=== PATIENT | female | born 1930 | race Caucasian/White ===

== ENCOUNTER 2016-05-15 13:16 | Emergency (ER) | payer MEDICARE, OTHER ==
[2016-05-15] MEDS ORDERED: Sodium Chloride 0.9% 10 ML Syringe FLUSH PRN (15:49)
[2016-05-15] MEDS ORDERED: Sodium Chloride 0.9% 1,000 ML IV SCH (16:00)
[2016-05-15 17:19] VITALS: BP 146/59
--- NOTE | 2016-05-15 17:40 | EDM.PDOC ---
ED HPI GENERAL MEDICAL PROBLEM - General Chief Complaint: General Stated Complaint: COUGH/ILL TODAY Time Seen by Provider: 05/15/16 15:40 Source of Information: Reports: Patient History Limitations: Reports: No limitations - History of Present Illness INITIAL COMMENTS - FREE TEXT/NARRATIVE: This lady said that she woke up on Friday or 3 days ago with a cough. She's been taking some Robitussin-DM cough medication. She slept a lot today. She denies any fever there is no chest pain no shortness of breath chest cough and a poor appetite. At about 11:30 today she got up suddenly and felt dizzy and started to fall. Her son caught her although she did bump her head against a table but that was very mild. He said she seemed stunned for about 30 seconds. EMS was called and they evaluated her and suggested she come to the ER but they did not transport her here. She feels fine now. - Related Data Allergies Allergy/AdvReac Type Severity Reaction Status Date / Time Sulfa (Sulfonamide Allergy Rash Verified 08/31/15 18:01 Antibiotics) Home Meds: Home Meds Aspirin [Ecotrin] 81 mg PO DAILY 08/31/15 [History] Atenolol 50 mg PO DAILY 08/31/15 [History] Betamethasone/Propylene Glyc [Diprolene 0.05%] 50 gm TP BID 08/31/15 [History] Calcium Carbonate/Vitamin D3 [Calcium 600 + Vit D 200] 1 each PO BID 08/31/15 [ History] EPINEPHrine [Epinephrine] 0.3 mg IM ASDIRECTED PRN 08/31/15 [History] Multivitamin [Multiple Vitamins] 1 tab PO DAILY 08/31/15 [History] Vitamin E 200 units PO DAILY 08/31/15 [History] atorvaSTATin [Lipitor] 10 mg PO ONETIME 08/31/15 [History] Latanoprost [Xalatan 0.005% Ophth Soln] 1 drop EYEBOTH BEDTIME 09/02/15 [History ] Hydrocodone/Acetaminophen [Hydrocodon-Acetaminophen 5-325] 1 each PO Q4H #30 tablet 09/03/15 [Rx] hydrALAZINE [Apresoline] 10 mg PO QID #120 tablet 09/03/15 [Rx] Losartan/Hydrochlorothiazide [Losartan-HCTZ 100-25 MG] 1 each PO DAILY 05/15/16 [History] amLODIPine Besylate [Amlodipine Besylate] 5 mg PO DAILY 05/15/16 [History] Past Medical History HEENT History: Reports: Glaucoma, Impaired vision, Macular degeneration Cardiovascular History: Reports: High cholesterol, Hypertension 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: Oncologic (Cancer) History: Reports: Cervix Dermatologic History: Reports: Other (see below) Other Dermatologic History: Numular dermatitis - Infectious Disease History Infectious Disease History: Reports: Chicken pox, Measles, Mumps - Past Surgical History HEENT Surgical History: Reports: Tonsillectomy, Other (see below) Other HEENT Surgeries/Procedures: Tear duct surgery Female Surgical History: Reports: Hysterectomy Social & Family History - Tobacco Use Smoking Status *Q: Never Smoker Second Hand Smoke Exposure: No - Caffeine Use Caffeine Use: Reports: Coffee, Tea - Recreational Drug Use Recreational Drug Use: No ED ROS GENERAL - Review of Systems Review Of Systems: See Below Constitutional: Reports: no symptoms HEENT: Reports: No symptoms Respiratory: Reports: Cough Cardiovascular: Reports: No symptoms Endocrine: Reports: no symptoms GI/Abdominal: Reports: No symptoms : Reports: no symptoms Musculoskeletal: Reports: no symptoms Skin: Reports: no symptoms Neurological: Reports: Dizziness (As per HPI) Psychiatric: Reports: No symptoms Hematologic/Lymphatic: Reports: no symptoms ED EXAM, GENERAL - Physical Exam Exam: See Below Exam Limited By: No limitations General Appearance: alert, WD/WN, no apparent distress Eye Exam: bilateral eye: normal inspection Ears: normal external exam Nose: normal inspection Throat/Mouth: Normal inspection Head: atraumatic (I don't notice any contusion or hematoma to the scalp) Neck: normal inspection, supple, full range of motion Respiratory/Chest: lungs clear Cardiovascular: regular rate, rhythm, no murmur GI/Abdominal: non tender Back Exam: normal inspection Extremities: normal inspection Neurological: alert, oriented Psychiatric: normal affect Skin Exam: Warm Course - Vital Signs Last Recorded V/S: Last Vital Signs Temp 37.1 C 05/15/16 16:11 Pulse 62 05/15/16 17:18 Resp 16 05/15/16 17:18 BP 146/59 H 05/15/16 17:18 Pulse Ox 96 05/15/16 17:18 - Orders/Labs/Meds Orders: Active Orders 24 hr Category Date Time Status Chest 2V [CR] Urgent Exams 05/15/16 15:49 Taken Saline Lock Insert [OM.PC] Urgent Oth 05/15/16 15:49 Ordered Labs: Laboratory Tests 05/15/16 05/15/16 Range/Units 16:00 16:00 WBC 5.9 (4.5-11.0) K/uL RBC 3.96 (3.30-5.50) M/uL Hgb 11.7 L (12.0-15.0) g/dL Hct 35.4 L (36.0-48.0) % MCV 89 (80-98) fL MCH 30 (27-31) pg MCHC 33 (32-36) % Plt Count 218 (150-400) K/uL Neut % (Auto) 59 (36-66) % Lymph % (Auto) 21 L (24-44) % [place] % (Auto) 20 H (2-6) % Eos % (Auto) 0 L (2-4) % Baso % (Auto) 0 (0-1) % Sodium 131 L (140-148) mmol/L Potassium 3.6 (3.6-5.2) mmol/L Chloride 94 L (100-108) mmol/L Carbon Dioxide 29 (21-32) mmol/L Anion Gap 11.6 (5.0-14.0) mmol/L BUN 21 H D (7-18) mg/dL Creatinine 1.4 H D (0.6-1.0) mg/dL Est Cr Clr Drug Dosing 27.95 mL/min Estimated GFR (MDRD) 36 L (>60) Glucose 115 H (74-106) mg/dL Calcium 9.1 (8.5-10.1) mg/dL Total Bilirubin 0.3 (0.2-1.0) mg/dL AST 35 (15-37) U/L ALT 27 (12-78) U/L Alkaline Phosphatase 44 L (46-116) U/L Total Protein 6.9 (6.4-8.2) g/dL Albumin 3.3 L (3.4-5.0) g/dL Globulin 3.6 H (2.3-3.5) g/dL Albumin/Globulin Ratio 0.9 L (1.2-2.2) Meds: Medications Discontinued Medications Generic Name Dose Route Start Last Admin Trade Name Freq PRN Reason Stop Dose Admin Sodium Chloride 1,000 mls @ 999 mls/hr 05/15/16 16:00 05/15/16 16:05 Normal Saline IV 999 mls/hr ASDIRECTED LISA Administration Sodium Chloride 10 ml 05/15/16 15:49 05/15/16 16:05 Saline Flush FLUSH 10 ml ASDIRECTED PRN Administration Keep Vein Open - Radiology Interpretation Free Text/Narrative:: Chest x-ray shows normal heart size normal lung markings - Re-Assessments/Exams Free Text/Narrative Re-Assessment/Exam: 05/15/16 17:56 The patient received 1 L of IV normal saline and said it made her feel much better. Labs were reviewed with the patient. By her history she's not tolerating the Robitussin-DM very well so she has a supply of hydrocodone at home so I suggest she take about 2-1/2 mg about every 4 hours and that should do well to control her cough. I suggest she avoid the guaifenesin also. I will put her on a Z-Chaitanya Departure - Departure Time of Disposition: 17:37 Disposition: Home, Self-Care 01 Condition: fair Clinical Impression: Bronchitis Instructions: Syncope, [id number] Referrals: Serge Truong MD [Primary Care Provider] - Forms: ED Department Discharge Additional Instructions: Take the azithromycin 250 mg 2 tablets today then one tablet daily until finished. Avoid the Robitussin-DM since it makes a lot of people dizzy and can actually make you cough more. Hydrocodone as a good cough suppressant and 2-1/2 mg every 4 hours is effective against cough. Most of the hydrocodone pain pills such as Lortab Vicodin or [place] or the 5/325 tablets to take one half tablet every 4 hours. Check what size you have since some tablets are 10 mg in which case you would just take one fourth of a tablet. Remember that hydrocodone can make you groggy - My Orders Last 24 Hours: My Active Orders 05/15/16 15:49 Chest 2V [CR] Urgent Saline Lock Insert [OM.PC] Urgent - Assessment/Plan Last 24 Hours: My Active Orders 05/15/16 15:49 Chest 2V [CR] Urgent Saline Lock Insert [OM.PC] Urgent
--- NOTE | 2016-05-16 09:56 | CR ---
Mild cardiomegaly. Tiny nodular density at the right apex. Recommend lordotic view follow-up is this may indicate a calcified granuloma but is indeterminate. Emphysematous change. No focal consolidati on.
== END 2016-05-15 17:52 | disposition home or self-care (01) ==
LOC: JP.ED 13:16
DX: J40 Bronchitis, not specified as acute or chronic (principal); E78.00 Pure hypercholesterolemia, unspecified; I10 Essential (primary) hypertension; Z88.2 Allergy status to sulfonamides; Z79.82 Long term (current) use of aspirin; Z79.899 Other long term (current) drug therapy; Z98.890 Other specified postprocedural states; Z90.710 Acquired absence of both cervix and uterus
CPT/HCPCS: 36415; 71020; 80053; 85025; 96360; 99284; J7040; J7050; 99283

== ENCOUNTER 2019-11-22 11:30 | Emergency (ER) | payer MEDICARE, OTHER ==
--- NOTE | 2019-11-22 12:03 | EDM.PDOC ---
ED HPI GENERAL MEDICAL PROBLEM - General Chief Complaint: ENT Problem Stated Complaint: MAYBE A STROKE Time Seen by Provider: 11/22/19 11:55 Source of Information: Reports: Patient, Family (son cares for patient at home) - History of Present Illness INITIAL COMMENTS - FREE TEXT/NARRATIVE: Gaby is a very active, pleasant and alert 89 year old female presents with son (whom cares for her at home) to ER with son for evaluation of left ear/facial pain. Gaby had a PE tube placed 1 week ago for serous otitis by ENT in [place]. son attempted to contacted ENT today for recommendations. Gaby has had left facial pain over the last 3 days which was significantly worse overnight. Son noticed facial droop this am and called the nurse line whom recommended Urgent ER evaluation. Son [place] and did not feel EMS would be as fast as driving to ER himself. Gaby describes slight decreased sensation in the left side of her face with intermittent severe sharp shooting pains, which brings her to tears. Gaby reports posterior ear discomfort. Gaby had not taken pain medication today due to no improvement of symptoms over the weekend. Gaby is on a ASA 81mg and medications for blood pressure and cholesterol. Gaby was prescribed ear drops which she completed over the weekend. Gaby denies fevers, chills,sweats or systemic infectious symptoms at this Time. Gaby denies fever, cough or URI symptoms concerning for COVID. Left Ear Pain Score (Numeric/FACES): 8 - Related Data Allergies Allergy/AdvReac Type Severity Reaction Status Date / Time Sulfa (Sulfonamide Allergy Rash Verified 08/31/15 18:01 Antibiotics) Home Meds: Home Meds Aspirin [Ecotrin EC] 81 mg PO DAILY 08/31/15 [History] Betamethasone/Propylene Glyc [Diprolene 0.05%] 50 gm TP BID 08/31/15 [History] Calcium Carbonate/Vitamin D3 [Calcium 600 + Vit D 200] 1 each PO BID 08/31/15 [History] EPINEPHrine [Epinephrine] 0.3 mg IM ASDIRECTED PRN 08/31/15 [History] Multivitamin [Multiple Vitamins] 1 tab PO DAILY 08/31/15 [History] Vitamin E 200 units PO DAILY 08/31/15 [History] atenoloL [Atenolol] 50 mg PO DAILY 08/31/15 [History] atorvaSTATin [Lipitor] 10 mg PO ONETIME 08/31/15 [History] Latanoprost [Xalatan 0.005% Ophth Soln] 1 drop EYEBOTH BEDTIME 09/02/15 [History] hydrALAZINE [Apresoline] 10 mg PO QID #120 tablet 09/03/15 [Rx] Losartan/Hydrochlorothiazide [Losartan-HCTZ 100-25 MG] 1 each PO DAILY 05/15/16 [History] amLODIPine Besylate [Amlodipine Besylate] 5 mg PO DAILY 05/15/16 [History] Ofloxacin [Floxin 0.3% Otic Soln] 1 drop EARBOTH BID 11/22/19 [History] valACYclovir HCl [Valacyclovir] 1,000 mg PO TID 10 Days #30 tablet 11/22/19 [Rx] Past Medical History HEENT History: Reports: Glaucoma, Impaired Vision, Macular Degeneration Cardiovascular History: Reports: High Cholesterol, Hypertension [employer]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: Oncologic (Cancer) History: Reports: Cervix Dermatologic History: Reports: Other (See Below) Other Dermatologic History: Numular dermatitis - Infectious Disease History Infectious Disease History: Reports: Chicken Pox, Measles, Mumps - Past Surgical History HEENT Surgical History: Reports: Tonsillectomy, Other (See Below) Female Surgical History: Reports: Hysterectomy Social & Family History - Tobacco Use Smoking Status *Q: Never Smoker - Caffeine Use Caffeine Use: Reports: Coffee, Tea - Recreational Drug Use Recreational Drug Use: No ED ROS ENT - Review of Systems Review Of Systems: Comprehensive ROS is negative, except as noted in HPI. ED EXAM, ENT - Physical Exam Exam: See Below Exam Limited By: No Limitations General Appearance: Alert, WD/WN, Moderate Distress (tearful due to severity of intermittent sharp pain) Eye Exam: Right Eye: Normal Inspection, Left Eye: Other (dropping lower eye lid ), Bilateral Eye: EOMI, PERRL Ears: Normal External Exam, Normal Canal, Hearing Grossly Normal (right (no hearing aide in left due to pain) Blue PE tube noted. ), Auricular Tenderness (with movement of pinna and tragus), Mastoid Tenderness (left with slight swelling), TM Perforation (PE tube left). No: Auricular Erythema, Auricular Ecchymosis, Canal Blood, Canal Material, Canal Swelling, TM Bulging, TM Erythema, TM Blood, TM Fluid, TM Vesicles Nose: Normal Inspection Mouth/Throat: Normal Inspection, Normal Lips (obvious left facial drop with forehead involvement (Gan's) ). No: Normal Oropharynx, Dental Pain, Hoarse Voice Head: Normocephalic Neck: Normal Inspection, Supple, Full Range of Motion Respiratory/Chest: No Respiratory Distress, Lungs Clear, Normal Breath Sounds Cardiovascular: Normal Peripheral Pulses, Regular Rate, Rhythm GI/Abdominal: Normal Bowel Sounds, Soft (Female) Exam: Deferred Rectal (Female) Exam: Deferred Neurological: Alert, Oriented, Normal Cognition, Sensory/Motor Deficit (Left facial sensation and left facial nerve droop) Skin: Warm, Dry, Intact, Normal Color, No Rash. No: Erythema Course - Vital Signs Last Recorded V/S: Last Vital Signs Temp 36.8 C 11/22/19 11:52 Pulse 63 11/22/19 14:49 Resp 18 11/22/19 14:49 BP 155/65 H 11/22/19 14:49 Pulse Ox 98 11/22/19 14:49 - Orders/Labs/Meds Orders: Active Orders 24 hr Category Date Time Status Cardiac Monitoring [RC] .As Directed Care 11/22/19 12:08 Active Peripheral IV Care [RC] . DIRECTED Care 11/22/19 12:09 Active Vital Signs [RC] PFP Care 11/22/19 12:08 Active Sodium Chloride 0.9% [Normal Saline] 1,000 ml Med 11/22/19 12:15 Active IV ASDIRECTED Sodium Chloride 0.9% [Saline Flush] Med 11/22/19 12:09 Active 10 ml FLUSH ASDIRECTED PRN Peripheral IV Insertion Adult [OM.PC] Urgent Oth 11/22/19 12:08 Ordered Medication Orders Sodium Chloride (Normal Saline) 1,000 mls @ 250 mls/hr IV ASDIRECTED LISA Last Admin: 11/22/19 12:48 Dose: 250 mls/hr Documented by: ROHINI Sodium Chloride (Saline Flush) 10 ml FLUSH ASDIRECTED PRN PRN Reason: Keep Vein Open Labs: Laboratory Tests 11/22/19 11/22/19 11/22/19 Range/Units 12:29 12:29 12:29 WBC 6.8 (4.5-11.0) K/uL RBC 4.07 (3.30-5.50) M/uL Hgb 12.1 (12.0-15.0) g/dL Hct 36.2 (36.0-48.0) % MCV 89 (80-98) fL MCH 30 (27-31) pg MCHC 33 (32-36) % Plt Count 241 (150-400) K/uL Neut % (Auto) 62 (36-66) % Lymph % (Auto) 22 L (24-44) % [place] % (Auto) 13 H (2-6) % Eos % (Auto) 3 (2-4) % Baso % (Auto) 0 (0-1) % Sodium 132 L (140-148) mmol/L Potassium 3.7 (3.6-5.2) mmol/L Chloride 96 L (100-108) mmol/L Carbon Dioxide 29 (21-32) mmol/L Anion Gap 10.7 (5.0-14.0) mmol/L BUN 13 (7-18) mg/dL Creatinine 1.1 H (0.6-1.0) mg/dL Est Cr Clr Drug Dosing 30.70 mL/min Estimated GFR (MDRD) 47 L (>60) Glucose 130 H (74-106) mg/dL Lactic Acid 1.2 (0.4-2.0) mmol/L Calcium 9.6 (8.5-10.1) mg/dL Total Bilirubin 0.5 D (0.2-1.0) mg/dL AST 23 (15-37) U/L ALT 19 (12-78) U/L Alkaline Phosphatase 87 D (46-116) U/L C-Reactive Protein < 0.05 (0.0-0.3) mg/dL Total Protein 6.6 (6.4-8.2) g/dL Albumin 3.1 L (3.4-5.0) g/dL Globulin 3.5 (2.3-3.5) g/dL Albumin/Globulin Ratio 0.9 L (1.2-2.2) Meds: Medications Generic Name Dose Route Start Last Admin Trade Name Freq PRN Reason Stop Dose Admin Sodium Chloride 1,000 mls @ 250 mls/hr 11/22/19 12:15 11/22/19 12:48 Normal Saline IV 250 mls/hr ASDIRECTED LISA Administration Sodium Chloride 10 ml 11/22/19 12:09 Saline Flush FLUSH ASDIRECTED PRN Keep Vein Open Discontinued Medications Generic Name Dose Route Start Last Admin Trade Name Monica PRN Reason Stop Dose Admin Hydrocodone Bitart/Acetaminophen 0.5 tab 11/22/19 15:03 11/22/19 15:40 [place] 325-5 Mg PO 11/22/19 15:04 0.5 tab ONETIME STA Administration Dexamethasone 10 mg 11/22/19 12:10 11/22/19 12:38 Dexamethasone IVPUSH 11/22/19 12:11 10 mg ONETIME ONE Administration Gabapentin 300 mg 11/22/19 12:35 11/22/19 12:47 Neurontin PO 11/22/19 12:36 300 mg ONETIME ONE Administration Acyclovir 500 mg/ Sodium 110 mls @ 100 mls/hr 11/22/19 12:10 11/22/19 12:48 Chloride IV 11/22/19 13:15 100 mls/hr ONETIME ONE Administration Morphine Sulfate 1 mg 11/22/19 12:09 11/22/19 12:38 Morphine IVPUSH 11/22/19 12:10 1 mg Q1H STA Administration - Re-Assessments/Exams Free Text/Narrative Re-Assessment/Exam: Spoke to Radiology regarding CT Imaging preferred for further evaluation of left mastoid pain, gan's palsy, trigeminal neuralgia with recent PE tube placement. Blood work obtained. Aggressive treatment will be initiated due to age, severity of symptoms, recent ENT procedure and acute onset of facial droop symptoms this am. 11/22/19 12:32 Reassessment: Spoke to patient and son, pain is much improved at this time. Gaby is hungry, tray ordered. Blood tests appear normal at this time. CT Temporal/sinuses obtained with findings of acute mastoiditis, no additional acute inner ear, fouzia or soft tissue concerns. Called placed to [facility], ENT for update and if any additional recommendations or concerns. On Hold. 11/22/19 14:32 Got transfer to ENT clinic to speak to a provider regarding ER visit, after PE tube placement [address] Wiseman was not available to consult at this time. Spoke to Malena Martin PA-C regarding patient presentation and concerns for needing oral antibiotic, steroid, antiviral and pain management. Malena will contact Dr Hughes for recommendations. 11/22/19 14:[address] Hughes regarding Gaby's presentation. He feels [place] Farmer (otic zoster is likely the cause of symptoms and should be treated with additional anti-viral and steroid but no oral antibiotics at this time. Dr Hughes will review CT and update me if additional treatments are recommended. Fluid in Mastoids is likely chronic and does not represent acute bacterial infection at this time. Follow-up with PCP later this week is recommended. 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 Valtrex 1000mg TId x 10 days (unless otherwise per Dr Truong later this week). 2. Prednisone 10mg tablets 4 tablets every am and pm (with food) x 5 days. May be continued or taper per Dr Truong. 3. [place] 1/2-1 tablet (upto 2) per every 6-8 hrs for moderate to severe pain. OR 4. Tylenol 325mg 1-2 tablet every 4-6 hrs for mild pain. Max 3000 mg Tylenol/Acetaminophen per 24 hrs. 5. Call Clinic for follow-up later this week or early next to ensure improving and/or continue symptoms. 6. Return to ER if concerns or changes. No antibiotic at this time, monitor for fever, redness or increased pain behind left ear which may indicate need for oral antibiotics. Sepsis Event Note (ED) - Evaluation Sepsis Screening Result: No Definite Risk - Focused Exam Vital Signs: Vital Signs Temp Pulse Resp BP Pulse Ox 11/22/19 14:49 63 18 155/65 H 98 11/22/19 14:20 60 17 152/61 H 98 11/22/19 13:50 57 L 16 178/65 H 98 11/22/19 11:52 36.8 C 62 16 175/68 H 100 11/22/19 11:47 36.8 C 62 16 175/68 H 100 - My Orders Last 24 Hours: My Active Orders 11/22/19 12:08 Cardiac Monitoring [RC] .As Directed Vital Signs [RC] PFP Peripheral IV Insertion Adult [OM.PC] Urgent 11/22/19 12:09 Peripheral IV Care [RC] . DIRECTED Sodium Chloride 0.9% [Saline Flush] 10 ml FLUSH ASDIRECTED PRN 11/22/19 12:15 Sodium Chloride 0.9% [Normal Saline] 1,000 ml IV ASDIRECTED - Assessment/Plan Last 24 Hours: My Active Orders 11/22/19 12:08 Cardiac Monitoring [RC] .As Directed Vital Signs [RC] PFP Peripheral IV Insertion Adult [OM.PC] Urgent 11/22/19 12:09 Peripheral IV Care [RC] . DIRECTED Sodium Chloride 0.9% [Saline Flush] 10 ml FLUSH ASDIRECTED PRN 11/22/19 12:15 Sodium Chloride 0.9% [Normal Saline] 1,000 ml IV ASDIRECTED
[2019-11-22] MEDS ORDERED: Sodium Chloride 0.9% 10 ML Syringe FLUSH PRN (12:09)
[2019-11-22] MEDS ORDERED: Morphine 2 MG/ML SYRINGE IVPUSH STA (12:09)
[2019-11-22] MEDS ORDERED: Dexamethasone 4 MG/ML SDV IVPUSH ONE (12:10)
[2019-11-22] MEDS ORDERED: Acyclovir 500 MG in Sodium Chloride 0.9% 100 ML IV ONE (12:10)
[2019-11-22] MEDS ORDERED: Sodium Chloride 0.9% 1,000 ML IV SCH (12:15)
[2019-11-22] MEDS ORDERED: Gabapentin 300 MG Cap PO ONE (12:35)
--- NOTE | 2019-11-22 14:36 | CT ---
Max Facial Sinus, temporal bones wo Cont CLINICAL HISTORY: Left facial palsy, pain, recent tympanic membrane surgery TECHNIQUE: Multiple contiguous axial sections were obtained through the temporal bones followed by coronal reconstructions without the IV infusion of contrast material. Auto dosage reduction and iterative reconstruction techniques employed. FINDINGS: There is fluid density in the left mastoid air cells. No bony destruction is identified. The middle ear cavity is clear on the left. There is a small tube in the tympanic membrane placed recently. The external auditory canal has normal course and contour. [place] are well demarcated and well positioned. The internal auditory canals are symmetric bilaterally. The right the mastoid air cells middle ear cavity and inner ear structures appear normal IMPRESSION: Fluid in the left mastoid air cells consistent with mastoiditis which may be acute. Middle ear cavity, auditory canals and inner ear structures appear intact
[2019-11-22] MEDS ORDERED: Acetaminophen/HYDROcodone 325-5 MG Tab PO STA (15:03)
[2019-11-22 15:07] VITALS: BP 155/65; PULSE 63
== END 2019-11-22 16:20 | disposition home or self-care (01) ==
LOC: JP.ED 11:30
DX: G51.0 Bell's palsy (principal); B02.21 Postherpetic geniculate ganglionitis; G50.0 Trigeminal neuralgia; I10 Essential (primary) hypertension; Z96.22 Myringotomy tube(s) status; Z90.710 Acquired absence of both cervix and uterus; Z88.2 Allergy status to sulfonamides; Z79.82 Long term (current) use of aspirin; Z79.899 Other long term (current) drug therapy
CPT/HCPCS: 36415; 70486; 80053; 83605; 85025; 86140; 96361; 96365; 96375; 99284; A9270; J0133; J1100; J2270; J7030; J7050